=== PATIENT | male | born 1955 | race American Indian/Alaskan Native ===

== ENCOUNTER 2019-02-04 10:27 | Emergency (ER) | payer MEDICARE ==
--- NOTE | 2019-02-04 11:06 | Emergency Department Report ---
ED Lower Extremity HPI - General Chief Complaint: Extremity Injury, Lower Stated Complaint: FALL/(L) KNEE PAIN Time Seen by Provider: 02/04/19 10:46 Source: patient Mode of arrival: Ambulatory Limitations: Physical Limitation - History of Present Illness Initial Comments: 63-year-old male presents to ED with left knee pain. Patient states 4 days ago he tripped over a branch and fell onto his left leg. Patient reports he felt a pop in the medial aspect of his left knee. Patient denies any immediate pain on the fall. However, after the days have progressed, patient reports medial left knee pain with ambulation. MD Complaint: knee injury -: days(s) (4) Injury: Knee: Left Type of Injury: blunt Severity: moderate Improves With: immobilization Worsens With: movement Context: fall Associated Symptoms: snap/pop sensation, ambulatory. denies: swelling - Related Data Home Medications Medication Instructions Recorded Confirmed Last Taken Aspirin [Aspirin BABY CHEW TAB] 1 tab PO DAILY 07/15/14 07/18/14 07/12/14 Cholecalciferol (Vitamin D3) 1 cap PO QDAY 07/18/14 07/18/14 07/12/14 [Vitamin D-3] cycloSPORINE [Restasis 0.05%] 1 drops BID 07/18/14 07/18/14 07/17/14 Previous Rx's Medication Instructions Recorded Last Taken Type Metaxalone [Skelaxin] 800 mg PO TID #30 tablet 09/19/14 Unknown Rx traMADol [Ultram] 50 mg PO Q6HR PRN #20 tablet 09/19/14 Unknown Rx traMADol [Ultram] 50 mg PO Q6HR PRN #7 tablet 02/04/19 Unknown Rx Allergies Allergy/AdvReac Type Severity Reaction Status Date / Time No Known Allergies Allergy Verified 02/04/19 10:28 ED Review of Systems ROS: Stated complaint: FALL/(L) KNEE PAIN Other details as noted in HPI Comment: All other systems reviewed and negative Musculoskeletal: as per HPI Neurological: denies: numbness, paresthesias ED Past Medical Hx - Past Medical History Hx Arthritis: Yes Hx Asthma: No Hx HIV: No - Surgical History Hx Open Heart Surgery: Yes (CABG 2013) Hx Pacemaker: Yes (2013) - Social History Smoking Status: Never Smoker Substance Use Type: None - Medications Home Medications: Home Medications Medication Instructions Recorded Confirmed Last Taken Type Aspirin [Aspirin BABY CHEW TAB] 1 tab PO DAILY 07/15/14 07/18/14 07/12/14 H istory Cholecalciferol (Vitamin D3) 1 cap PO QDAY 07/18/14 07/18/14 07/12/14 History [Vitamin D-3] cycloSPORINE [Restasis 0.05%] 1 drops BID 07/18/14 07/18/14 07/17/14 History Metaxalone [Skelaxin] 800 mg PO TID #30 tablet 09/19/14 Unknown Rx traMADol [Ultram] 50 mg PO Q6HR PRN #20 tablet 09/19/14 Unknown Rx traMADol [Ultram] 50 mg PO Q6HR PRN #7 tablet 02/04/19 Unknown Rx ED Physical Exam - General Limitations: Physical Limitation General appearance: alert, in no apparent distress - Head Head exam: Present: atraumatic, normocephalic - Eye Eye exam: Present: normal appearance, PERRL, EOMI - ENT ENT exam: Present: mucous membranes moist - Respiratory Respiratory exam: Present: normal lung sounds bilaterally. Absent: respiratory distress - Cardiovascular Cardiovascular Exam: Present: regular rate, normal rhythm - GI/Abdominal GI/Abdominal exam: Present: soft. Absent: distended, tenderness - Extremities Exam Extremities exam: Present: normal inspection, full ROM, tenderness (mild tenderness medial left knee) - Neurological Exam Neurological exam: Present: alert, oriented X3. Absent: motor sensory deficit - Psychiatric Psychiatric exam: Present: normal affect, normal mood - Skin Skin exam: Present: warm, dry, intact, normal color ED Course Vital Signs 02/04/19 02/04/19 02/04/19 10:35 10:52 11:00 Temperature 98.2 F Pulse Rate 38 L 66 72 Respiratory 18 15 16 Rate Blood Pressure 112/69 103/64 O2 Sat by Pulse 99 97 Oximetry 02/04/19 02/04/19 11:15 11:30 Temperature Pulse Rate 77 64 Respiratory 16 22 Rate Blood Pressure 124/85 128/82 O2 Sat by Pulse 96 Oximetry ED Lower Extremity MDM - EKG Data -: EKG Interpreted by Oh EKG shows normal: QRS complexes, ST-T waves Rate: normal - EKG Data Interpretation: other (atrial paced rhythm) - Radiology Data Radiology results: report reviewed, image reviewed - Differential Diagnosis fracture, sprain Critical care attestation.: If time is entered above; I have spent that time in minutes in the direct care of this critically ill patient, excluding procedure time. ED Disposition Clinical Impression: Left knee sprain Disposition: TO HOME OR SELFCARE Is pt being admited?: No Condition: Stable Instructions: Knee Sprain (ED) Prescriptions: traMADol [Ultram] 50 mg PO Q6HR PRN #7 tablet PRN Reason: Pain Referrals: PRIMARY CAREMD [Referring] - 3-5 Days LES SCHREIBER MD [Staff Physician] - 3-5 Days Time of Disposition: 11:40
--- NOTE | 2019-02-04 11:27 | XRay Report ---
LEFT KNEE 3 VIEW(S) INDICATION / CLINICAL INFORMATION: injury, pain COMPARISON: None available. FINDINGS: BONES / JOINT(S): No acute fracture or subluxation. No significant arthritis. SOFT TISSUES: Mild to moderate prepatellar soft tissue swelling. ADDITIONAL FINDINGS: None. Signer Name: Malgorzata Roman MD Signed: 02/04/2019 11:23 AM Workstation Name: [id number]
[2019-02-04 11:45] VITALS: BP 128/82
== END 2019-02-04 12:00 | disposition home or self-care (01) ==
LOC: ED 10:27
DX: S83.92XA Sprain of unspecified site of left knee, initial encounter (principal); M19.90 Unspecified osteoarthritis, unspecified site; Z95.1 Presence of aortocoronary bypass graft; Z79.82 Long term (current) use of aspirin; Z79.899 Other long term (current) drug therapy; W01.198A Fall on same level from slipping, tripping and stumbling with subsequent striking against other object, initial encounter; Y93.89 Activity, other specified; Y92.89 Other specified places as the place of occurrence of the external cause; Y99.8 Other external cause status
CPT/HCPCS: 93005; 93010

== ENCOUNTER 2019-02-08 05:42 | Observation (INO) | payer MEDICARE ==
--- NOTE | 2019-02-08 06:18 | Emergency Department Report ---
ED Dizziness HPI - General Chief Complaint: Dizziness Stated Complaint: DIZZINESS/CHEST PALPITATION Source: EMS Mode of arrival: Stretcher Limitations: No Limitations - History of Present Illness Initial Comments: 63-year-old male with a past medical history renal insufficiency, arthritis, mitral valve replacement and pacemaker placement 2013 presents to the hospital with complaints of episode of lightheadedness and diaphoresis while getting out of bed this a.m. Patient states he was diaphoretic from the waist upward and felt like he was going to pass out. Patient had associated palpitations and blurred vision during episode. Patient denies headache, chest pain, shortness of breath, abdominal pain, focal weakness, or focal numbness. He reports good by mouth intake without nausea, vomiting or diarrhea. Patient had a prostate biopsy performed 4 days ago and has had intermittent blood in his stool since. Patient has been off of his aspirin 81 mg 1 week due to prostate biopsy procedure. Patient denies history of PE/DVT, calf tenderness, leg edema, or recent travel. 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: [facility] - Related Data Home Medications Medication Instructions Recorded Confirmed Last Taken Aspirin [Aspirin BABY CHEW TAB] 1 tab PO DAILY 07/15/14 07/18/14 07/12/14 Cholecalciferol (Vitamin D3) 1 cap PO QDAY 07/18/14 07/18/14 07/12/14 [Vitamin D-3] cycloSPORINE [Restasis 0.05%] 1 drops BID 07/18/14 07/18/14 07/17/14 Previous Rx's Medication Instructions Recorded Last Taken Type Metaxalone [Skelaxin] 800 mg PO TID #30 tablet 09/19/14 Unknown Rx traMADol [Ultram] 50 mg PO Q6HR PRN #20 tablet 09/19/14 Unknown Rx traMADol [Ultram] 50 mg PO Q6HR PRN #7 tablet 02/04/19 Unknown Rx Allergies Allergy/AdvReac Type Severity Reaction Status Date / Time No Known Allergies Allergy Verified 02/04/19 10:28 ED Review of Systems ROS: Stated complaint: DIZZINESS/CHEST PALPITATION Other details as noted in HPI Comment: All other systems reviewed and negative ED Past Medical Hx - Past Medical History Previous Medical History?: Yes Hx Renal Disease: Yes Hx Arthritis: Yes Hx Asthma: No Hx HIV: No - Surgical History Past Surgical History?: Yes Hx Open Heart Surgery: Yes (for mitral valve 2013) Hx Pacemaker: Yes (2013) Additional Surgical History: Mitral valve replacement and pacemaker - Social History Smoking Status: Former Smoker Substance Use Type: None - Medications Home Medications: Home Medications Medication Instructions Recorded Confirmed Last Taken Type Aspirin [Aspirin BABY CHEW TAB] 1 tab PO DAILY 07/15/14 07/18/14 07/12/14 History Cholecalciferol (Vitamin D3) 1 cap PO QDAY 07/18/14 07/18/14 07/12/14 History [Vitamin D-3] cycloSPORINE [Restasis 0.05%] 1 drops BID 07/18/14 07/18/14 07/17/14 History Metaxalone [Skelaxin] 800 mg PO TID #30 tablet 09/19/14 Unknown Rx traMADol [Ultram] 50 mg PO Q6HR PRN #20 tablet 09/19/14 Unknown Rx traMADol [Ultram] 50 mg PO Q6HR PRN #7 tablet 02/04/19 Unknown Rx ED Physical Exam - General Limitations: No Limitations - Other Other exam information: General: No limitations, patient is alert in no acute distress Head exam: Atraumatic, normocephalic Eyes exam: Normal appearance, extraocular movements intact ENT: Moist mucous membrane, normal oropharynx Neck exam: Normal inspection, full range of motion, no meningismus nontender Respiratory exam: Clear to auscultation bilateral, no wheezes, rales, crackles Cardiovascular: Normal rate and rhythm, normal heart sounds Abdomen: Soft, nondistended, and nontender, with normal bowel sounds, no rebound, or guarding Extremity: Full range of motion normal inspection no deformity, no calf tenderness or edema Back: Normal Inspection, full range of motion, no tenderness Neurologic: Alert, oriented x3, cranial nerves intact, no motor or sensory deficit Psychiatric: normal affect, normal mood Skin: Warm, dry, intact ED Course Vital Signs 02/08/19 02/08/19 02/08/19 06:00 06:16 07:00 Temperature 97.9 F Pulse Rate 64 63 64 Respiratory 12 14 11 L Rate Blood Pressure 112/70 113/69 120/74 Blood Pressure [Right] O2 Sat by Pulse 97 96 94 Oximetry 02/08/19 08:12 Temperature Pulse Rate 62 Respiratory 15 Rate Blood Pressure Blood Pressure 122/71 [Right] O2 Sat by Pulse 99 Oximetry - Consultations Consultation #1: 02/08/19 08:33 case d/w Dr Zambrano (cardiology) upon call back at this time. ED Medical Decision Making - Lab Data Result diagrams: 02/08/19 06:33 02/08/19 06:33 Lab Results 02/08/19 02/08/19 02/08/19 Range/Units 06:33 06:33 06:33 WBC 5.7 (4.5-11.0) K/mm3 RBC 5.10 H (3.65-5.03) M/mm3 Hgb 15.0 (11.8-15.2) gm/dl Hct 42.7 (35.5-45.6) % MCV 84 (84-94) fl MCH 30 (28-32) pg MCHC 35 H (32-34) % RDW 13.8 (13.2-15.2) % Plt Count 201 (140-440) K/mm3 Lymph % (Auto) 16.1 (13.4-35.0) % [place] % (Auto) 7.6 H (0.0-7.3) % Eos % (Auto) 5.1 H (0.0-4.3) % Baso % (Auto) 1.3 (0.0-1.8) % Lymph # 0.9 L (1.2-5.4) K/mm3 Clay # 0.4 (0.0-0.8) K/mm3 Eos # 0.3 (0.0-0.4) K/mm3 Baso # 0.1 (0.0-0.1) K/mm3 Seg Neutrophils % 69.9 (40.0-70.0) % Seg Neutrophils # 4.0 (1.8-7.7) K/mm3 PT 13.9 (12.2-14.9) Sec. INR 1.10 (0.87-1.13) APTT 24.7 (24.2-36.6) Sec. Sodium 139 (137-145) mmol/L Potassium 4.7 (3.6-5.0) mmol/L Chloride 103.6 (98-107) mmol/L Carbon Dioxide 26 (22-30) mmol/L Anion Gap 14 mmol/L BUN 17 (9-20) mg/dL Creatinine 1.6 H (0.8-1.5) mg/dL Estimated GFR 53 ml/min BUN/Creatinine Ratio 11 % Glucose 98 (75-100) mg/dL Calcium 9.2 (8.4-10.2) mg/dL Magnesium (1.7-2.3) mg/dL Total Bilirubin 0.90 (0.1-1.2) mg/dL AST 29 (5-40) units/L ALT 25 (7-56) units/L Alkaline Phosphatase 66 (35-129) units/L Troponin T < 0.010 (0.00-0.029) ng/mL Total Protein 7.5 (6.3-8.2) g/dL Albumin 4.2 (3.9-5) g/dL Albumin/Globulin Ratio 1.3 % TSH (0.270-4.200) mlU/mL Free T4 (0.76-1.46) ng/dL 02/08/19 02/08/19 Range/Units 06:33 06:33 WBC (4.5-11.0) K/mm3 RBC (3.65-5.03) M/mm3 Hgb (11.8-15.2) gm/dl Hct (35.5-45.6) % MCV (84-94) fl MCH (28-32) pg MCHC (32-34) % RDW (13.2-15.2) % Plt Count (140-440) K/mm3 Lymph % (Auto) (13.4-35.0) % [place] % (Auto) (0.0-7.3) % Eos % (Auto) (0.0-4.3) % Baso % (Auto) (0.0-1.8) % Lymph # (1.2-5.4) K/mm3 [place] # (0.0-0.8) K/mm3 Eos # (0.0-0.4) K/mm3 Baso # (0.0-0.1) K/mm3 Seg Neutrophils % (40.0-70.0) % Seg Neutrophils # (1.8-7.7) K/mm3 PT (12.2-14.9) Sec. INR (0.87-1.13) APTT (24.2-36.6) Sec. Sodium (137-145) mmol/L Potassium (3.6-5.0) mmol/L Chloride (98-107) mmol/L Carbon Dioxide (22-30) mmol/L Anion Gap mmol/L BUN (9-20) mg/dL Creatinine (0.8-1.5) mg/dL Estimated GFR ml/min BUN/Creatinine Ratio % Glucose (75-100) mg/dL Calcium (8.4-10.2) mg/dL Magnesium 2.20 (1.7-2.3) mg/dL Total Bilirubin (0.1-1.2) mg/dL AST (5-40) units/L ALT (7-56) units/L Alkaline Phosphatase (35-129) units/L Troponin T (0.00-0.029) ng/mL Total Protein (6.3-8.2) g/dL Albumin (3.9-5) g/dL Albumin/Globulin Ratio % TSH 2.620 (0.270-4.200) mlU/mL Free T4 1.34 (0.76-1.46) ng/dL - EKG Data -: EKG Interpreted by Me (atrial paced rhythm) EKG shows normal: sinus rhythm, axis (QRs -25), QRS complexes (QRS duration 89), ST-T waves (no stemi) Rate: normal (65) - EKG Data When compared to previous EKG there are: no significant change - Radiology Data Radiology results: report reviewed CHEST 1 VIEW INDICATION: near syncope. COMPARISON: Chest x-ray from 09/19/2014 FINDINGS: Support devices: Stable satisfactory device positioning. Heart: Within normal limits. Lungs/Pleura: No acute air space or interstitial disease. Additional findings: None. IMPRESSION: 1. No acute findings. - Medical Decision Making plan to admit for monitoring due to apheresis with near syncopal episode. Cardiology consult ordered - Differential Diagnosis arrhythmia, [place], unstable angina, anemia, vasovagal, dehydration Critical Care Time: No Critical care attestation.: If time is entered above; I have spent that time in minutes in the direct care of this critically ill patient, excluding procedure time. ED Disposition Clinical Impression: Near syncope, Diaphoresis, Hx of mitral valve replacement, Pacemaker, Renal insufficiency Disposition: OP ADMIT IP TO THIS HOSP Is pt being admited?: Yes Condition: Stable Time of Disposition: 07:52 (Dr Carlos, hospitalist)
[2019-02-08 06:45] LABS: Basophils # (Auto) 0.1 K/mm3 (0.0-0.1); Basophils % (Auto) 1.3 % (0.0-1.8); Eosinophils # (Auto) 0.3 K/mm3 (0.0-0.4); Eosinophils % (Auto) 5.1 % (0.0-4.3); Hematocrit 42.7 % (35.5-45.6); Lymphocytes # (Auto) 0.9 K/mm3 (1.2-5.4); Lymphocytes % (Auto) 16.1 % (13.4-35.0); Mean Corpuscular HGB Conc 35 % (32-34); Mean Corpuscular Volume 84 fl (84-94); Monocytes # (Auto) 0.4 K/mm3 (0.0-0.8); Monocytes % (Auto) 7.6 % (0.0-7.3); Platelet Count 201 K/mm3 (140-440); Red Cell Distribution Width 13.8 % (13.2-15.2)
--- NOTE | 2019-02-08 06:45 | XRay Report ---
CHEST 1 VIEW INDICATION: near syncope. COMPARISON: Chest x-ray from 09/19/2014 FINDINGS: Support devices: Stable satisfactory device positioning. Heart: Within normal limits. Lungs/Pleura: No acute air space or interstitial disease. Additional findings: None. IMPRESSION: 1. No acute findings. Signer Name: Jani Wells MD Signed: 02/08/2019 6:41 AM Workstation Name: [id number]
[2019-02-08 06:55] LABS: INR 1.1 (0.87-1.13)
[2019-02-08 06:56] LABS: Partial Thromboplastin Time 24.7 Sec. (24.2-36.6)
[2019-02-08 07:12] LABS: Alanine Aminotransferase 25 units/L (7-56); Albumin 4.2 g/dL (3.9-5); BUN/Creatinine Ratio 11; Blood Urea Nitrogen 17 mg/dL (9-20); Calcium 9.2 mg/dL (8.4-10.2); Hemolysis Index 6
[2019-02-08 07:19] LABS: Free T4 (Free Thyroxine) 1.34 ng/dL (0.76-1.46)
--- NOTE | 2019-02-08 09:35 | History and Physical Report ---
History of Present Illness Date of examination: 02/08/19 Date of admission: 02/08/19 Chief complaint: dizziness History of present illness: 63-year-old male with a past medical history renal insufficiency, arthritis, mitral valve replacement and pacemaker placement 2013 presents to the hospital with complaints of episode of lightheadedness and diaphoresis while getting out of bed this a.m. Patient states that after awakening this morning while lying in bed he felt as though the room was spinning around him. Patient attempted to sit up and became diaphoretic with symptoms of presyncope. Patient had associated palpitations and blurred vision during episode. Patient denies headache, chest pain, shortness of breath, abdominal pain, focal weakness, or focal numbness. He reports good by mouth intake without nausea, vomiting or diarrhea. Patient reports similar symptoms in the past that are consistent with vertigo. However, patient has never been diagnosed with vertigo. Patient had a prostate biopsy performed 4 days ago and has had intermittent blood in his stool since. Patient has been off of his aspirin 81 mg 1 week due to prostate biopsy procedure. Patient denies history of PE/DVT, calf tenderness, leg edema, or recent travel. 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: [facility] Past History Past Medical History: arthritis, other (renal insufficiency) Past Surgical History: valve replacement (mitral), Other (pacemaker placement 2013) Social history: no significant social history Family history: no significant family history Medications and Allergies Allergies Allergy/AdvReac Type Severity Reaction Status Date / Time No Known Allergies Allergy Verified 02/04/19 10:28 Home Medications Medication Instructions Recorded Confirmed Last Taken Type Aspirin [Aspirin BABY CHEW TAB] 1 tab PO DAILY 07/15/14 07/18/14 07/12/14 Histor y Cholecalciferol (Vitamin D3) 1 cap PO QDAY 07/18/14 07/18/14 07/12/14 History [Vitamin D-3] cycloSPORINE [Restasis 0.05%] 1 drops BID 07/18/14 07/18/14 07/17/14 History Metaxalone [Skelaxin] 800 mg PO TID #30 tablet 09/19/14 Unknown Rx traMADol [Ultram] 50 mg PO Q6HR PRN #20 tablet 09/19/14 Unknown Rx traMADol [Ultram] 50 mg PO Q6HR PRN #7 tablet 02/04/19 Unknown Rx Review of Systems All systems: negative Exam - Constitutional Vitals: Temp Pulse Resp BP Pulse Ox 97.9 F 62 15 122/71 99 02/08/19 06:00 02/08/19 08:12 02/08/19 08:12 02/08/19 08:12 02/08/19 08:12 General appearance: Present: no acute distress, well-nourished - EENT Eyes: Present: PERRL ENT: hearing intact, clear oral mucosa - Neck Neck: Present: supple, normal ROM - Respiratory Respiratory effort: normal Respiratory: bilateral: CTA - Cardiovascular Heart Sounds: Present: S1 & S2. Absent: rub, click - Extremities Extremities: pulses symmetrical, No edema Peripheral Pulses: within normal limits - Abdominal General gastrointestinal: Present: soft, non-tender, non-distended, normal bowel sounds Male genitourinary: Present: normal - Integumentary Integumentary: Present: clear, warm, dry - Musculoskeletal Musculoskeletal: gait normal, strength equal bilaterally - Psychiatric Psychiatric: appropriate mood/affect, intact judgment & insight - Neurologic Neurologic: CNII-XII intact, moves all extremities Results - Labs CBC & Chem 7: 02/08/19 06:33 02/08/19 06:33 Labs: Laboratory Last Values WBC 5.7 K/mm3 (4.5-11.0) 02/08/19 06:33 RBC 5.10 M/mm3 (3.65-5.03) H 02/08/19 06:33 Hgb 15.0 gm/dl (11.8-15.2) 02/08/19 06:33 Hct 42.7 % (35.5-45.6) 02/08/19 06:33 MCV 84 fl (84-94) 02/08/19 06:33 MCH 30 pg (28-32) 02/08/19 06:33 MCHC 35 % (32-34) H 02/08/19 06:33 RDW 13.8 % (13.2-15.2) 02/08/19 06:33 Plt Count 201 K/mm3 (140-440) 02/08/19 06:33 Lymph % (Auto) 16.1 % (13.4-35.0) 02/08/19 06:33 [place] % (Auto) 7.6 % (0.0-7.3) H 02/08/19 06:33 Eos % (Auto) 5.1 % (0.0-4.3) H 02/08/19 06:33 Baso % (Auto) 1.3 % (0.0-1.8) 02/08/19 06:33 Lymph # 0.9 K/mm3 (1.2-5.4) L 02/08/19 06:33 [place] # 0.4 K/mm3 (0.0-0.8) 02/08/19 06:33 Eos # 0.3 K/mm3 (0.0-0.4) 02/08/19 06:33 Baso # 0.1 K/mm3 (0.0-0.1) 02/08/19 06:33 Seg Neutrophils % 69.9 % (40.0-70.0) 02/08/19 06:33 Seg Neutrophils # 4.0 K/mm3 (1.8-7.7) 02/08/19 06:33 PT 13.9 Sec. (12.2-14.9) 02/08/19 06:33 INR 1.10 (0.87-1.13) 02/08/19 06:33 APTT 24.7 Sec. (24.2-36.6) 02/08/19 06:33 Sodium 139 mmol/L (137-145) 02/08/19 06:33 Potassium 4.7 mmol/L (3.6-5.0) 02/08/19 06:33 Chloride 103.6 mmol/L (98-107) 02/08/19 06:33 Carbon Dioxide 26 mmol/L (22-30) 02/08/19 06:33 14 mmol/L 02/08/19 06:33 BUN 17 mg/dL (9-20) 02/08/19 06:33 1.6 mg/dL (0.8-1.5) H 02/08/19 06:33 Estimated GFR 53 ml/min 02/08/19 06:33 11 % 02/08/19 06:33 Glucose 98 mg/dL (75-100) 02/08/19 06:33 Calcium 9.2 mg/dL (8.4-10.2) 02/08/19 06:33 Magnesium 2.20 mg/dL (1.7-2.3) 02/08/19 06:33 0.90 mg/dL (0.1-1.2) 02/08/19 06:33 AST 29 units/L (5-40) 02/08/19 06:33 ALT 25 units/L (7-56) 02/08/19 06:33 66 units/L (35-129) 02/08/19 06:33 < 0.010 ng/mL (0.00-0.029) 02/08/19 06:33 7.5 g/dL (6.3-8.2) 02/08/19 06:33 4.2 g/dL (3.9-5) 02/08/19 06:33 1.3 % 02/08/19 06:33 TSH 2.620 mlU/mL (0.270-4.200) 02/08/19 06:33 Free T4 1.34 ng/dL (0.76-1.46) 02/08/19 06:33 Assessment and Plan Assessment and plan: Presyncope. Patient will have further evaluation with cardiology. Follow-up echocardiogram and carotid Dopplers. Patient reports recent stress test approximately one month ago that was found to be normal. Monitor on telemetry. Acute on Chronic kidney disease. Patient may have acute renal failure secondary to vasomotor nephropathy/dehydration. IV fluid hydration. We do not have a baseline creatinines compare. However, patient reportedly with history of renal insufficiency. ? BPH. We will try trial of meclizine. PT evaluation. History of mitral valve replacement. Hx PPM.
[2019-02-08] MEDS ORDERED: TYLENOL PO PRN (09:41)
[2019-02-08] MEDS ORDERED: ZOFRAN IV PRN (09:41)
[2019-02-08] MEDS ORDERED: SODIUM CHLORIDE FLUSH SYRINGE 10 ML IV PRN (09:41)
[2019-02-08] MEDS ORDERED: NACL 0.9% 1000 ML 1,000 ML IV SCH (10:00)
--- NOTE | 2019-02-08 10:42 | Vascular Lab Report ---
BILATERAL CAROTID DOPPLER ULTRASOUND INDICATION : presyncope TECHNIQUE: Grayscale and color Doppler imaging performed through the neck. COMPARISON: None FINDINGS: Right: There is no significant atherosclerotic disease. Peak systolic velocity in the CCA is 89 cm/ s with end-diastolic velocity of 21 cm/s. Peak systolic velocity in the proximal ICA is 58 cm/s with end-diastolic velocity of 22 cm/s. ICA to CCA ratio is less than 2. There is antegrade flow in the E CA and the vertebral artery. Left: There is no significant atherosclerotic disease. Peak systolic velocity in the CCA is 99 cm/s w ith end-diastolic velocity of 20 cm/s. Peak systolic velocity in the proximal ICA is 43 cm/s with end -diastolic velocity of 16 cm/s. ICA to CCA ratio is less than 2. There is antegrade flow in the ECA and the vertebral artery. IMPRESSION: No hemodynamically significant stenosis by NASCET criteria. Signer Name: Krishna Soares Jr, MD Signed: 02/08/2019 10:38 AM Workstation Name: [id number]
--- NOTE | 2019-02-08 14:48 | Consultation ---
History of Present Illness Consult date: 02/08/19 Consult reason: other (Near syncope) History of present illness: This is a 63-year old male male who is known to [facility]. 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 His latest echocardiogram reports a calcified posterior MV leaflet with limited mobility. 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 Ejection fraction 50%. Patient also has a dual chamber pacemaker in place for history of complete heart block. Normal function by recent routine interrogation. Just 2 months ago he had a persantine thallium stress test that's reported as normal. Patient is admitted to this hospital with near syncope. Patient reports he woke up dizzy and if the room were spinning. As he was getting out of the bed, his dizziness worsened and noted diaphoretic. Patient denies chest pain, denies palpitations and denies unusual shortness of breath. Patient denies loss of consciousness. Blood pressure has remained stable. Initial labs revealed mild dehydration, creatinine 1.6. An ECG is atrial paced rhythm. Past History Past Medical History: arthritis, other (renal insufficiency) Past Surgical History: valve replacement (mitral), Other (pacemaker placement 2013) Social history: no significant social history Family history: no significant family history Medications and Allergies Allergies Allergy/AdvReac Type Severity Reaction Status Date / Time No Known Allergies Allergy Verified 02/04/19 10:28 Home Medications Medication Instructions Recorded Confirmed Last Taken Type Aspirin [Aspirin BABY CHEW TAB] 81 mg PO QDAY 02/08/19 02/08/19 Unknown History AtorvaSTATin [Lipitor] 10 mg PO QHS 02/08/19 02/08/19 Unknown History Metoprolol Xl [Metoprolol 25 mg PO QDAY 02/08/19 02/08/19 Unknown History SUCCINATE ER TAB] Tamsulosin [Flomax] 0.4 mg PO BID 02/08/19 02/08/19 Unknown History Timolol [Betimol] 5 ml OP BID 02/08/19 02/08/19 Unknown History Active Meds: Active Medications Acetaminophen (Tylenol) 650 mg PO Q4H PRN PRN Reason: Pain MILD(1-3)/Fever >100.5/BILLINGS Enoxaparin Sodium (Lovenox) 40 mg SUB-Q QDAY CORINE Sodium Chloride (Nacl 0.9% 1000 Ml) 1,000 mls @ 75 mls/hr IV DIRECT CORINE Meclizine HCl (Antivert) 25 mg PO TID CORINE Ondansetron HCl (Zofran) 4 mg IV Q8H PRN PRN Reason: Nausea And Vomiting Sodium Chloride (Sodium Chloride Flush Syringe 10 Ml) 10 ml IV BID CORINE Sodium Chloride (Sodium Chloride Flush Syringe 10 Ml) 10 ml IV PRN PRN PRN Reason: LINE FLUSH Physical Examination Vital Signs Temp Pulse Resp BP Pulse Ox 97.9 F 64 12 112/70 97 02/08/19 06:00 02/08/19 06:00 02/08/19 06:00 02/08/19 06:00 02/08/19 06:00 General appearance: no acute distress HEENT: Positive: PERRL Neck: Positive: trachea midline Cardiac: Positive: Other (paced rhythm) Lungs: Positive: Decreased Breath Sounds Neuro: Positive: Grossly Intact Extremities: Absent: edema Results 02/08/19 06:33 02/08/19 06:33 Cardiac Enzymes 02/08/19 Range/Units 06:33 AST 29 (5-40) units/L Coagulation 02/08/19 Range/Units 06:33 PT 13.9 (12.2-14.9) Sec. INR 1.10 (0.87-1.13) APTT 24.7 (24.2-36.6) Sec. CBC 02/08/19 Range/Units 06:33 WBC 5.7 (4.5-11.0) K/mm3 RBC 5.10 H (3.65-5.03) M/mm3 Hgb 15.0 (11.8-15.2) gm/dl Hct 42.7 (35.5-45.6) % Plt Count 201 (140-440) K/mm3 Lymph # 0.9 L (1.2-5.4) K/mm3 [place] # 0.4 (0.0-0.8) K/mm3 Eos # 0.3 (0.0-0.4) K/mm3 Baso # 0.1 (0.0-0.1) K/mm3 Comprehensive Metabolic Panel 02/08/19 Range/Units 06:33 Sodium 139 (137-145) mmol/L Potassium 4.7 (3.6-5.0) mmol/L Chloride 103.6 (98-107) mmol/L Carbon Dioxide 26 (22-30) mmol/L BUN 17 (9-20) mg/dL Creatinine 1.6 H (0.8-1.5) mg/dL Glucose 98 (75-100) mg/dL Calcium 9.2 (8.4-10.2) mg/dL AST 29 (5-40) units/L ALT 25 (7-56) units/L Alkaline Phosphatase 66 (35-129) units/L Total Protein 7.5 (6.3-8.2) g/dL Albumin 4.2 (3.9-5) g/dL Assessment and Plan Near syncope Dehydration MV disease s/p repair in 2013. Hx of Complete Heart Block DC PPM insitu -normal function by recent interrogation Normal MPI as an outpatient done 11/2018. We will repeat an echocardiogram.
[2019-02-08] MEDS: LOVENOX SUB-Q SCH (17:24)
[2019-02-08] MEDS: ANTIVERT PO SCH ×2 (17:24→22:06)
[2019-02-08] MEDS: FLOMAX PO SCH (19:11)
[2019-02-08] MEDS: SODIUM CHLORIDE FLUSH SYRINGE 10 ML IV SCH ×2 (19:18→22:07)
[2019-02-09 05:12] LABS: Basophils # (Auto) 0.1 K/mm3 (0.0-0.1); Basophils % (Auto) 0.8 % (0.0-1.8); Eosinophils # (Auto) 0.3 K/mm3 (0.0-0.4); Eosinophils % (Auto) 4.3 % (0.0-4.3); Hematocrit 42.2 % (35.5-45.6); Hemoglobin 14.5 gm/dl (11.8-15.2); Lymphocytes # (Auto) 1.8 K/mm3 (1.2-5.4); Lymphocytes % (Auto) 24.6 % (13.4-35.0); Mean Corpuscular HGB Conc 34 % (32-34); Mean Corpuscular Volume 86 fl (84-94); Monocytes # (Auto) 0.6 K/mm3 (0.0-0.8); Monocytes % (Auto) 7.9 % (0.0-7.3); Platelet Count 192 K/mm3 (140-440); Red Blood Count 4.94 M/mm3 (3.65-5.03); Red Cell Distribution Width 13.9 % (13.2-15.2)
[2019-02-09 05:32] LABS: Calcium 9.2 mg/dL (8.4-10.2)
[2019-02-09] MEDS: LOVENOX SUB-Q SCH (09:02)
[2019-02-09] MEDS: ANTIVERT PO SCH ×2 (09:02→13:43)
[2019-02-09] MEDS: FLOMAX PO SCH (09:02)
--- NOTE | 2019-02-09 09:14 | Progress Note ---
Assessment and Plan Near syncope likely a transient episode of vertigo when he awoke from sleep Dehydration MV repair in 2013 Hx of Complete Heart Block DC PPM insitu -normal function by recent interrogation Normal MPI as an outpatient done 11/2018. An echocardiogram this admission reports mild MS with at least mild MR. Normal LVEF 55-60%. Conservative cardiac management. Subjective Date of service: 02/09/19 Interval history: Patient has no complaints. He denies dizziness and lightheadedness. Objective Vital Signs Temp Pulse Resp BP BP Pulse Ox 02/09/19 08:23 98.0 F 76 18 126/75 97 02/09/19 04:00 98.0 F 64 18 116/71 97 02/09/19 00:00 98.3 F 70 18 105/72 95 02/08/19 20:49 84 02/08/19 20:10 78 02/08/19 19:33 98.0 F 76 18 138/80 96 02/08/19 18:10 105/57 98 02/08/19 18:00 105/57 100 02/08/19 17:50 110/56 96 02/08/19 17:40 100/45 100 02/08/19 17:30 106/47 99 02/08/19 17:20 106/47 100 02/08/19 17:10 106/58 99 02/08/19 17:01 106/58 100 02/08/19 16:50 116/59 100 02/08/19 16:40 109/58 100 02/08/19 16:30 109/58 100 02/08/19 16:20 110/52 100 02/08/19 16:11 111/63 85 02/08/19 15:30 88 12 111/63 94 02/08/19 15:20 83 15 111/54 94 02/08/19 15:10 83 25 H 115/63 96 02/08/19 15:00 78 17 115/63 92 02/08/19 14:50 88 18 99 02/08/19 14:40 84 20 115/62 69 L 02/08/19 14:30 84 20 115/62 100 02/08/19 14:20 86 19 107/56 98 02/08/19 14:10 90 27 H 105/61 100 02/08/19 14:00 101 H 19 105/61 86 02/08/19 13:50 91 H 14 109/65 100 02/08/19 13:40 106 H 20 106/59 99 02/08/19 13:30 82 19 106/59 02/08/19 13:20 85 32 H 95/44 100 02/08/19 13:10 91 H 26 H 114/48 100 02/08/19 13:02 114/48 72 L 02/08/19 12:00 65 15 120/74 96 02/08/19 09:50 64 18 111/79 96 02/08/19 09:40 12 111/79 96 02/08/19 09:30 64 16 111/79 97 02/08/19 09:20 62 16 111/79 97 - Physical Examination General: No Apparent Distress HEENT: Positive: PERRL Neck: Positive: trachea midline Cardiac: Positive: Other (paced) Lungs: Positive: Normal Breath Sounds Neuro: Positive: Grossly Intact Extremities: Absent: edema - Labs and Meds CBC 02/09/19 Range/Units 04:41 WBC 7.3 (4.5-11.0) K/mm3 RBC 4.94 (3.65-5.03) M/mm3 Hgb 14.5 (11.8-15.2) gm/dl Hct 42.2 (35.5-45.6) % Plt Count 192 (140-440) K/mm3 Lymph # 1.8 (1.2-5.4) K/mm3 [place] # 0.6 (0.0-0.8) K/mm3 Eos # 0.3 (0.0-0.4) K/mm3 Baso # 0.1 (0.0-0.1) K/mm3 Comprehensive Metabolic Panel 02/09/19 Range/Units 04:41 Sodium 137 (137-145) mmol/L Potassium 3.8 (3.6-5.0) mmol/L Chloride 100.9 (98-107) mmol/L Carbon Dioxide 25 (22-30) mmol/L BUN 16 (9-20) mg/dL Creatinine 1.5 (0.8-1.5) mg/dL Glucose 98 (75-100) mg/dL Calcium 9.2 (8.4-10.2) mg/dL
[2019-02-09] MEDS: SODIUM CHLORIDE FLUSH SYRINGE 10 ML IV SCH (09:17)
[2019-02-09 15:32] VITALS: BP 109/59
--- NOTE | 2019-02-09 16:01 | Discharge Summary ---
Providers - Providers Date of Admission: 02/08/19 09:41 Date of discharge: 02/09/19 Attending physician: RACHELLE WALLACE 02/08/19 07:53 Consult to Physician [CONS] Urgent Comment: Dr. Tam spoke to Dr. Zambrano @ 08:35- [facility] Consulting Provider: [facility] Lisbeth GONZALEZ Physician Instructions: Reason For Exam: near syncope, diaphoresis, pacemaker Primary care physician: OBDULIO GARCIA Hospitalization Condition: Fair Disposition: DC-01 TO HOME OR SELFCARE - Discharge Diagnoses (1) JASMYN (acute kidney injury) Status: Acute (2) Vasomotor nephropathy Status: Acute (3) Hx of mitral valve replacement Status: Acute (4) Pacemaker Status: Acute Core Measure Documentation - Palliative Care Palliative Care/ Comfort Measures: Not Applicable - Core Measures Any of the following diagnoses?: none Exam - Constitutional Vitals: Temp Pulse Resp BP Pulse Ox 97.9 F 42 L 18 109/59 95 02/09/19 15:31 02/09/19 15:31 02/09/19 15:31 02/09/19 15:31 02/09/19 15:31 Plan Activity: advance as tolerated Diet: low fat, low cholesterol, low salt Additional Instructions: 1.Follow up with PCP in 1 week Plan of Treatment: 1.Follow up with PCP in 1 week. 2.Follow up with Cardiology in 1 week Health Concerns: Dizziness,resolved Assessment: Dizziness due to orthostasis, dehydration,JASMYN Follow up with: PRIMARY CAREMD [Referring] - 3-5 Days
== END 2019-02-09 17:43 | disposition home or self-care (01) ==
LOC: ED 05:42 → 4A 09:41
PROVIDERS: ADMIT Hospitalist; ATTEND Internal Medicine
DX: R55 Syncope and collapse (principal); N17.9 Acute kidney failure, unspecified; N18.9 Chronic kidney disease, unspecified; Z95.2 Presence of prosthetic heart valve
CPT/HCPCS: 36415; 71045; 80048; 80053; 83735; 84439; 84443; 84484; 85025; 85610; 85730; 93005; 93010; 93306; 93880; G0378; J1650; J7030; 96372